=== PATIENT | male | born 1985 | race Caucasian/White ===

== ENCOUNTER 2018-06-07 16:13 | Emergency (ER) | payer MEDICAID, OTHER ==
[2018-06-07] MEDS: LORAZEPAM 1 MG TAB PO (16:23)
== END 2018-06-07 18:06 | disposition home or self-care (01) ==
LOC: E/R 16:13
DX: F15.180 Other stimulant abuse with stimulant-induced anxiety disorder (principal); J45.909 Unspecified asthma, uncomplicated; F17.210 Nicotine dependence, cigarettes, uncomplicated; R40.2142 Coma scale, eyes open, spontaneous, at arrival to emergency department; R40.2362 Coma scale, best motor response, obeys commands, at arrival to emergency department; R40.2252 Coma scale, best verbal response, oriented, at arrival to emergency department
CPT/HCPCS: 93005; 99283-25